=== PATIENT | female | born 2000 | race Caucasian/White ===

== ENCOUNTER → 2023-12-26 15:10 | Outpatient (REF) | payer OTHER, SELFPAY | LOC: WDC 15:10 | PROVIDERS: ATTENDING PHYSICIAN Family Medicine | DX: N63.0 Unspecified lump in unspecified breast (principal) | CPT/HCPCS: 76642 ==

== ENCOUNTER → 2024-12-13 10:16 | Outpatient (REF) | payer OTHER, SELFPAY ==
[2024-12-13 18:26] LABS: Rubella Negative
[2024-12-15 11:34] LABS: Quantiferon Mitogen minus NIL 9.94 IU/mL; Quantiferon NIL 0.06 IU/mL; Quantiferon TB Gold Plus Negative (Negative)
== END ==
LOC: OHS 10:16
PROVIDERS: ATTENDING PHYSICIAN Nurse Practitioner Family
DX: Z23 Encounter for immunization (principal)
CPT/HCPCS: 36415; 86480; 86735; 86762; 86765; 86787